=== PATIENT | male | born 1960 | race African-American/Black ===

== ENCOUNTER 2022-03-22 07:53 | Emergency (ER) | payer MEDICAID, OTHER ==
[~2022-03-22] VITALS: Ht 175.3 cm; Wt 110.0 kg
[2022-03-22 07:56] VITALS: BP 148/90
[2022-03-22] MEDS ORDERED: FLUORESCEIN SODIUM 1MG/STRIP LEFTEYE ONE (08:30)
[2022-03-22] MEDS ORDERED: TETRACAINE 0.5% OPHTH DROPS 4ML LEFTEYE ONE (08:30)
== END 2022-03-22 08:55 | disposition left against medical advice (07) ==
LOC: ER 07:53
DX: R51.9 Headache, unspecified (principal); H53.8 Other visual disturbances; J45.901 Unspecified asthma with (acute) exacerbation; J44.9 Chronic obstructive pulmonary disease, unspecified; I10 Essential (primary) hypertension; Z87.891 Personal history of nicotine dependence
CPT/HCPCS: 99283

== ENCOUNTER 2022-05-12 06:26 | Emergency (ER) | payer MEDICARE, MEDICAID ==
[~2022-05-12] VITALS: Ht 175.3 cm; Wt 90.0 kg
[2022-05-12 06:32] VITALS: BP 149/73
[2022-05-12] MEDS ORDERED: ONDANSETRON HCL 4MG/2ML INJ IV STA (07:05)
[2022-05-12] MEDS ORDERED: KETOROLAC 30MG/ML VIAL IV STA (07:05)
[2022-05-12] MEDS ORDERED: SODIUM CHLORIDE 0.9% 1,000 ML IV ONE (07:15)
== END 2022-05-12 07:42 | disposition left against medical advice (07) ==
LOC: ER 06:26
DX: R10.12 Left upper quadrant pain (principal); R10.11 Right upper quadrant pain; I10 Essential (primary) hypertension; J44.9 Chronic obstructive pulmonary disease, unspecified
CPT/HCPCS: 99283; J7030